=== PATIENT | female | born 1960 | race African-American/Black ===

== ENCOUNTER → 2017-01-19 | Outpatient (CLI) | payer MEDICAID ==
[2017-01-19 09:20] LABS: ABSOLUTE EOSINOPHILS # (AUTO) 0.4 10^3/uL (0.0-0.6); ABSOLUTE LYMPHOCYTES (AUTO) 2.5 10^3/uL (0.5-4.7); ABSOLUTE MONOCYTES (AUTO) 0.6 10^3/uL (0.1-1.4); ABSOLUTE NEUT (AUTO) 3.9 10^3/uL (1.7-8.2); BASOPHILS % (AUTO) 0.5 % (0-2); EOSINOPHILS % (AUTO) 5.2 % (0-6); HEMOGLOBIN 10.9 g/dL (12.0-15.5); HGB HCT DIFFERENCE -2.3; MEAN CORPUSCULAR HEMOGLOBIN 22.9 pg (27.0-33.4); MEAN CORPUSCULAR HGB CONC 31.1 g/dL (32.0-36.0); MEAN CORPUSCULAR VOLUME 74 fl (80-97); MONOCYTES % (AUTO) 7.7 % (3-13); RED BLOOD COUNT 4.76 10^6/uL (3.72-5.28); RED CELL DISTRIBUTION WIDTH 15.5 % (11.5-14.0); SEGMENTED NEUTROPHILS % (AUTO) 52.6 % (42-78); WHITE BLOOD COUNT 7.5 10^3/uL (4.0-10.5)
[2017-01-19 09:43] LABS: ALANINE AMINOTRANSFERASE 36 U/L (9-52); ALKALINE PHOSPHATASE 118 U/L (38-126); ANION GAP 10 (5-19); ASPARTATE AMINO TRANSFERASE 29 U/L (14-36); BILIRUBIN,DIRECT 0.3 mg/dL (0.0-0.4); BILIRUBIN,TOTAL 0.5 mg/dL (0.2-1.3); BLOOD UREA NITROGEN 11 mg/dL (7-20); CALCIUM 9.4 mg/dL (8.4-10.2); CARBON DIOXIDE 28 mmol/L (22-30); CHLORIDE 104 mmol/L (98-107); CHOLESTEROL 240.15 mg/dL (0-200); CREATININE RESULT 0.76 mg/dL (0.52-1.25); Direct HDL 68 mg/dL (>40); GLUCOSE 89 mg/dL (75-110); POTASSIUM 4.3 mmol/L (3.6-5.0); SODIUM 141.7 mmol/L (137-145); TOTAL PROTEIN 7.7 g/dL (6.3-8.2); TRIGLYCERIDES 60 mg/dL (<150)
[2017-01-19 09:54] LABS: DIRECT LDL 133 mg/dL (<100)
--- NOTE | 2017-01-19 09:54 | RADIOLOGY REPORT (SQ) ---
EXAM DESCRIPTION: FOOT BILATERAL 3 VIEWS COMPLETED DATE/TIME: 01/19/2017 9:43 am REASON FOR STUDY: PAIN IN RIGHT FOOT M54.5 LOW BACK PAIN M79.671 PAIN IN RIGHT FOOT COMPARISON: None. NUMBER OF VIEWS: Three views. TECHNIQUE: AP, lateral and oblique radiographic images acquired of the right and left foot. LIMITATIONS: None. FINDINGS: MINERALIZATION: Normal. BONES: No acute fracture or dislocation. No worrisome bone lesions. JOINTS: Hallux valgus is present bilaterally. SOFT TISSUES: No soft tissue swelling. No foreign body. OTHER: No other significant finding. IMPRESSION: Bilateral hallux valgus with no acute abnormality. TECHNICAL DOCUMENTATION: JOB ID: [id number] [employer]- All Rights Reserved
--- NOTE | 2017-01-19 09:55 | RADIOLOGY REPORT (SQ) ---
EXAM DESCRIPTION: ANKLE BILATERAL 3 VIEWS MIN COMPLETED DATE/TIME: 01/19/2017 9:43 am REASON FOR STUDY: PAIN IN RIGHT FOOT M54.5 LOW BACK PAIN M79.671 PAIN IN RIGHT FOOT COMPARISON: None. NUMBER OF VIEWS: Three views. TECHNIQUE: AP, lateral, and oblique radiographic images acquired of the right and left ankle. LIMITATIONS: None. FINDINGS: MINERALIZATION: Normal. BONES: No acute fracture or dislocation. No worrisome bone lesions. JOINTS: No effusions. SOFT TISSUES: No soft tissue swelling. No foreign body. OTHER: No other significant finding. IMPRESSION: NO RADIOGRAPHIC EVIDENCE OF ACUTE INJURY OF THE RIGHT AND LEFT ANKLES. TECHNICAL DOCUMENTATION: JOB ID: [id number] [employer]- All Rights Reserved
--- NOTE | 2017-01-19 10:00 | RADIOLOGY REPORT (SQ) ---
EXAM DESCRIPTION: LUMBAR SPINE COMPLETE COMPLETED DATE/TIME: 01/19/2017 9:43 am REASON FOR STUDY: LOW BACK PAIN M54.5 LOW BACK PAIN M79.671 PAIN IN RIGHT FOOT COMPARISON: None. NUMBER OF VIEWS: Five views including obliques. TECHNIQUE: AP, lateral, oblique, and sacral radiographic images acquired of the lumbar spine. LIMITATIONS: None. FINDINGS: MINERALIZATION: Normal. SEGMENTATION: There appear to be 6 lumbar type vertebral bodies. There is pseudoarthrosis with the s acrum at the L6 level. ALIGNMENT: Normal. VERTEBRAE: Maintained height. No fracture or worrisome bone lesion. DISCS: Preserved height. No significant osteophytes or end plate irregularity. POSTERIOR ELEMENTS: Pedicles and facets are intact. No pars defect or posterior arch defects. HARDWARE: None in the spine. PARASPINAL SOFT TISSUES: Normal. PELVIS: Intact as visualized. No fractures or worrisome bone lesions. SI joints intact. OTHER: No other significant finding. IMPRESSION: 6 lumbar vertebral bodies. There is pseudoarthrosis between the L6 vertebral body and s acrum. This is consistent with Bertolotti's syndrome. TECHNICAL DOCUMENTATION: JOB ID: [id number] [employer]- All Rights Reserved
--- NOTE | 2017-01-19 10:01 | RADIOLOGY REPORT (SQ) ---
EXAM DESCRIPTION: SACRUM AND COCCYX COMPLETED DATE/TIME: 01/19/2017 9:43 am REASON FOR STUDY: LOW BACK PAIN M54.5 LOW BACK PAIN M79.671 PAIN IN RIGHT FOOT COMPARISON: None. NUMBER OF VIEWS: Three views. TECHNIQUE: AP, lateral, and tilt views of the sacrum and coccyx. LIMITATIONS: None. FINDINGS: MINERALIZATION: Normal. BONES: No acute fracture or dislocation. No worrisome bone lesions. SOFT TISSUES: No soft tissue swelling. No foreign body. OTHER: Pseudoarthrosis is present the upper sacrum as described in the lumbar spine report. 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 TECHNICAL DOCUMENTATION: JOB ID: [id number] [email or web address]- All Rights Reserved
== END ==
LOC: OD 08:38
PROVIDERS: ATTEND Family Medicine Geriatric Medicine
DX: M54.5 Low back pain (principal); M79.671 Pain in right foot; E78.5 Hyperlipidemia, unspecified; D64.9 Anemia, unspecified; E55.9 Vitamin D deficiency, unspecified; G62.9 Polyneuropathy, unspecified; Z79.899 Other long term (current) drug therapy
CPT/HCPCS: 36415; 72110; 72220; 80053; 80061; 82306; 82607; 84443; 85025

== ENCOUNTER → 2017-01-21 | Outpatient (CLI) | payer MEDICAID | LOC: OD 08:45 | PROVIDERS: ATTEND Family Medicine Geriatric Medicine | DX: D64.9 Anemia, unspecified (principal) | CPT/HCPCS: 36415; 82728; 83540; 83550; 84466; 85045 ==

== ENCOUNTER → 2017-02-17 | Outpatient (CLI) | payer MEDICAID ==
--- NOTE | 2017-02-17 14:51 | RADIOLOGY REPORT (SQ) ---
EXAM DESCRIPTION: NM GASTRIC EMPTYING STUDY COMPLETED DATE/TIME: 02/17/2017 1:51 pm REASON FOR STUDY: BLOATING/GASTROPARESIS R14.0 ABDOMINAL DISTENSION (GASEOUS) K31.84 GASTROPARESIS COMPARISON: None. RADIONUCLIDE AND DOSE: 2 millicuries Tc-99m Sulfur Colloid. The route of agent administration: Oral. TECHNIQUE: Serial images acquired to 240 minutes with each image recorded over a 2-minute time frame . Image intensity values plotted with respect to time with linear regression algorithm. LIMITATIONS: None. FINDINGS: CALCULATED VALUE: 90.3 %. NORMAL VALUE: Greater than 90 % emptying at 240 minutes. OTHER: No other significant finding. IMPRESSION: NORMAL GASTRIC EMPTYING. TECHNICAL DOCUMENTATION: JOB ID: [id number] [employer]- All Rights Reserved
== END ==
LOC: RAD 07:57
PROVIDERS: ATTEND Internal Medicine Gastroenterology
DX: K31.84 Gastroparesis (principal); R14.0 Abdominal distension (gaseous)
CPT/HCPCS: 78264; A9541

== ENCOUNTER → 2017-03-04 | Outpatient (CLI) | payer MEDICAID ==
[2017-03-04 10:29] LABS: ALBUMIN 4.1 g/dL (3.5-5.0); ANION GAP 9 (5-19); BLOOD UREA NITROGEN 15 mg/dL (7-20); CALCIUM 9.9 mg/dL (8.4-10.2); CARBON DIOXIDE 28 mmol/L (22-30); CHLORIDE 105 mmol/L (98-107); CREATININE RESULT 0.83 mg/dL (0.52-1.25); GLUCOSE 80 mg/dL (75-110); POTASSIUM 4.2 mmol/L (3.6-5.0); SODIUM 142.4 mmol/L (137-145); TOTAL PROTEIN 7.5 g/dL (6.3-8.2)
[2017-03-04 10:33] LABS: ALANINE AMINOTRANSFERASE 30 U/L (9-52); ALKALINE PHOSPHATASE 105 U/L (38-126); ASPARTATE AMINO TRANSFERASE 26 U/L (14-36); BILIRUBIN,DIRECT 0.3 mg/dL (0.0-0.4); BILIRUBIN,TOTAL 0.4 mg/dL (0.2-1.3); C-REACTIVE PROTEIN 15.2 mg/L (<10.0)
[2017-03-05 08:50] LABS: THYROXINE (T4) 9.6 ug/dL (4.5-12.0)
== END ==
LOC: OD 08:51
PROVIDERS: ATTEND Family Medicine
DX: M06.4 Inflammatory polyarthropathy (principal)
CPT/HCPCS: 36415; 80053; 84436; 84443; 85652; 86038; 86140; 86430

== ENCOUNTER → 2017-06-17 | Outpatient (CLI) | payer MEDICAID ==
--- NOTE | 2017-06-17 14:27 | WOMENS IMAGING REPORT ---
EXAM DESCRIPTION: BILAT SCREENING MAMMO W/CAD COMPLETED DATE/TIME: 06/17/2017 10:04 am REASON FOR STUDY: ROUTINE SCREENING Z12.31 Z12.31 ENCNTR SCREEN MAMMOGRAM FOR MALIGNANT NEOPLASM OF [place] COMPARISON: December 2015 TECHNIQUE: Standard craniocaudal and mediolateral oblique views of each breast recorded using digita l acquisition. LIMITATIONS: None. FINDINGS: No masses, calcifications or architectural distortion. No areas of suspicion. Read with the assistance of CAD. .[facility] - R2 Cenova Version 1.3 .[facility] - R2 Cenova Version 1.3 .[facility] - R2 Cenova Version 2.4 .[facility] - R2 Cenova Version 2.4 .[facility] - R2 [employer] Version 9.2 IMPRESSION: NORMAL MAMMOGRAM. BIRADS 1. BREAST DENSITY: b. There are scattered areas of fibroglandular density. BIRAD: 1 NEGATIVE RECOMMENDATION: ROUTINE SCREENING COMMENT: The patient has been notified of the results by letter per SA requirements. Additional no tification policies are in place for contacting patient with suspicious or incomplete findings. Quality ID #225: The [employer] recommends an annual screening mammogram for women aged 40 years or over. This facility utilizes a reminder system to ensure that all patients receive reminder letters, and/or direct phone calls for appointments. This includes reminders for routine scr eening mammograms, diagnostic mammograms, or other Breast Imaging Interventions when appropriate. Th is patient will be placed in the appropriate reminder system. The [employer] (ACR) has developed recommendations for screening MRI of the breast s in certain patient populations, to be used in conjunction with mammography. Breast MRI surveillanc e may be appropriate for women with more than 20% lifetime risk of developing breast cancer as deter mined by genetic testing, significant family history of the disease, or history of mantle radiation f or Hodgkins Disease. ACR Practice Guidelines 2008. TECHNICAL DOCUMENTATION: FINDING NUMBER: (1) ASSESSMENT: (1) JOB ID: [id number] [employer]- All Rights Reserved
== END ==
LOC: WI 10:24
PROVIDERS: ATTEND Family Medicine Geriatric Medicine
DX: Z12.31 Encounter for screening mammogram for malignant neoplasm of breast (principal)
CPT/HCPCS: 77067; G0202

== ENCOUNTER → 2017-09-15 | Outpatient (CLI) | payer MEDICAID ==
--- NOTE | 2017-09-15 09:31 | RADIOLOGY REPORT (SQ) ---
EXAM DESCRIPTION: FOOT RIGHT COMPLETE COMPLETED DATE/TIME: 09/15/2017 9:16 am REASON FOR STUDY: PAIN IN R FOOT/ANKLE M25.571 PAIN IN RIGHT ANKLE AND JOINTS OF RIGHT FOOT M79.671 PAIN IN RIGHT FOOT COMPARISON: None. NUMBER OF VIEWS: Three views. TECHNIQUE: AP, lateral and oblique without weight bearing radiographic images acquired of the right foot. LIMITATIONS: None. FINDINGS: MINERALIZATION: Normal. BONES: No acute fracture or dislocation. Hallux valgus and bunion deformity of the great toe. No wo rrisome bone lesions. No significant osteophytes. JOINTS: No erosions. No clarita-articular osteopenia. No chondrocalcinosis. SOFT TISSUES: No swelling. No calcifications. OTHER: No other significant finding. IMPRESSION: CHRONIC CHANGES. HALLUX VALGUS AND BUNION DEFORMITY OF THE GREAT TOE. NO ACUTE FINDING S. TECHNICAL DOCUMENTATION: JOB ID: [id number] [employer]- All Rights Reserved Reading location - IP/workstation name: [email or web address]
--- NOTE | 2017-09-15 09:32 | RADIOLOGY REPORT (SQ) ---
EXAM DESCRIPTION: ANKLE RIGHT COMPLETE COMPLETED DATE/TIME: 09/15/2017 9:16 am REASON FOR STUDY: PAIN IN R FOOT/ANKLE M25.571 PAIN IN RIGHT ANKLE AND JOINTS OF RIGHT FOOT M79.671 PAIN IN RIGHT FOOT COMPARISON: None. NUMBER OF VIEWS: Three views. TECHNIQUE: AP, lateral, and oblique without weight bearing radiographic images acquired of the right ankle. LIMITATIONS: None. FINDINGS: MINERALIZATION: Normal. BONES: No acute fracture or dislocation. No worrisome bone lesions. Normal alignment. No significant arthritic changes. JOINTS AND SOFT TISSUES: No swelling. No calcifications. No foreign bodies. OTHER: No other significant finding. IMPRESSION: NEGATIVE STUDY OF THE RIGHT ANKLE. NO ACUTE POST-TRAUMATIC CHANGES. NO EXPLANATION FOR P AIN. TECHNICAL DOCUMENTATION: JOB ID: [id number] [employer]- All Rights Reserved Reading location - IP/workstation name: [email or web address]
== END ==
LOC: RAD 08:52
PROVIDERS: ATTEND Family Medicine Geriatric Medicine
DX: M25.571 Pain in right ankle and joints of right foot (principal); M79.671 Pain in right foot; M20.11 Hallux valgus (acquired), right foot; M21.611 Bunion of right foot

== ENCOUNTER → 2017-10-24 | Outpatient (CLI) | payer MEDICAID ==
[2017-10-24 11:03] LABS: ABSOLUTE BASOPHILS # (AUTO) 0.1 10^3/uL (0.0-0.2); ABSOLUTE EOSINOPHILS # (AUTO) 0.3 10^3/uL (0.0-0.6); ABSOLUTE MONOCYTES (AUTO) 0.4 10^3/uL (0.1-1.4); ABSOLUTE NEUT (AUTO) 3.7 10^3/uL (1.7-8.2); BASOPHILS % (AUTO) 0.8 % (0-2); EOSINOPHILS % (AUTO) 4.8 % (0-6); HEMATOCRIT 34.9 % (36.0-47.0); LYMPHOCYTES % (AUTO) 31.2 % (13-45); MEAN CORPUSCULAR HEMOGLOBIN 23.3 pg (27.0-33.4); MEAN CORPUSCULAR HGB CONC 31.7 g/dL (32.0-36.0); MEAN CORPUSCULAR VOLUME 74 fl (80-97); MONOCYTES % (AUTO) 6.7 % (3-13); PLATELET COUNT 339 10^3/uL (150-450); RED BLOOD COUNT 4.74 10^6/uL (3.72-5.28); RED CELL DISTRIBUTION WIDTH 16.1 % (11.5-14.0); SEGMENTED NEUTROPHILS % (AUTO) 56.5 % (42-78); TOTAL CELLS COUNTED % (AUTO) 100 %; WHITE BLOOD COUNT 6.5 10^3/uL (4.0-10.5)
[2017-10-24 11:34] LABS: ALANINE AMINOTRANSFERASE 40 U/L (9-52); ANION GAP 7 (5-19); ASPARTATE AMINO TRANSFERASE 28 U/L (14-36); BLOOD UREA NITROGEN 12 mg/dL (7-20); CALCIUM 9.7 mg/dL (8.4-10.2); CARBON DIOXIDE 31 mmol/L (22-30); CHLORIDE 103 mmol/L (98-107); CHOLESTEROL 260.52 mg/dL (0-200); GLUCOSE 90 mg/dL (75-110); POTASSIUM 4.2 mmol/L (3.6-5.0); SODIUM 140.9 mmol/L (137-145); TRIGLYCERIDES 67 mg/dL (<150); URIC ACID 4.3 mg/dL (2.5-7.5)
[2017-10-24 11:45] LABS: DIRECT LDL 132 mg/dL (<100)
== END ==
LOC: LAB 09:48
PROVIDERS: ATTEND Family Medicine Geriatric Medicine
DX: M25.571 Pain in right ankle and joints of right foot (principal); D50.9 Iron deficiency anemia, unspecified; K21.9 Gastro-esophageal reflux disease without esophagitis; Z79.899 Other long term (current) drug therapy
CPT/HCPCS: 36415; 80048; 80061; 82272; 84450; 84460; 84550; 85025

== ENCOUNTER → 2017-10-27 | Outpatient (CLI) | payer MEDICAID ==
[2017-10-27 11:32] LABS: ABSOLUTE BASOPHILS # (AUTO) 0.1 10^3/uL (0.0-0.2); ABSOLUTE EOSINOPHILS # (AUTO) 0.3 10^3/uL (0.0-0.6); ABSOLUTE LYMPHOCYTES (AUTO) 2.5 10^3/uL (0.5-4.7); ABSOLUTE MONOCYTES (AUTO) 0.7 10^3/uL (0.1-1.4); BASOPHILS % (AUTO) 0.7 % (0-2); EOSINOPHILS % (AUTO) 4.5 % (0-6); HEMATOCRIT 33.6 % (36.0-47.0); HEMOGLOBIN 10.7 g/dL (12.0-15.5); LYMPHOCYTES % (AUTO) 33.4 % (13-45); MEAN CORPUSCULAR HEMOGLOBIN 23.1 pg (27.0-33.4); MEAN CORPUSCULAR HGB CONC 31.7 g/dL (32.0-36.0); MEAN CORPUSCULAR VOLUME 73 fl (80-97); MONOCYTES % (AUTO) 8.6 % (3-13); PLATELET COUNT 335 10^3/uL (150-450); RED BLOOD COUNT 4.61 10^6/uL (3.72-5.28); SEGMENTED NEUTROPHILS % (AUTO) 52.8 % (42-78); TOTAL CELLS COUNTED % (AUTO) 100 %; WHITE BLOOD COUNT 7.6 10^3/uL (4.0-10.5)
== END ==
LOC: OD 10:55
PROVIDERS: ATTEND Family Medicine Geriatric Medicine
DX: D50.9 Iron deficiency anemia, unspecified (principal)
CPT/HCPCS: 36415; 85025

== ENCOUNTER 2018-04-05 07:56 | Day surgery (SDC) | payer MEDICAID ==
[~2018-04-05 07:56] MED LIST: BUPIVACAINE HCL 0.5 % INJ/PF 30 ML SDV ONE; CEFAZOLIN 1 GM/D5W RTU 1 GM/50 ML RTUPB IV PRN; HYDROMORPHONE HCL INJ/PF 2 MG/ML AMPULE ONE; LIDOCAINE 2% INJ (20 MG/ML) 20 ML MDV ONE; MIDAZOLAM 2 MG/2 ML INJ ONE; PROPOFOL INJ 200 MG/20 ML VIAL IV ONE
== END 2018-04-05 08:14 | disposition home or self-care (01) ==
LOC: SC 07:56
PROVIDERS: ATTEND Podiatrist Foot Surgery
DX: R69 Illness, unspecified (principal)
CPT/HCPCS: J1170; J2250; J2704; J3490

== ENCOUNTER 2018-04-26 08:12 | Day surgery (SDC) | payer MEDICAID ==
[~2018-04-26 08:12] MED LIST changes: +BACITRACIN INJ 50,000 UNIT VIAL ONE; -HYDROMORPHONE HCL INJ/PF 2 MG/ML AMPULE ONE; -MIDAZOLAM 2 MG/2 ML INJ ONE; +NORMAL SALINE INJ/PF 0.9% 10 ML SDV ONE; +POLYMYXIN B SULFATE INJ 500000 UNIT VIAL ONE; -PROPOFOL INJ 200 MG/20 ML VIAL IV ONE
[2018-04-26] MEDS ORDERED: MIDAZOLAM 2 MG/2 ML INJ ONE (09:30)
[2018-04-26] MEDS ORDERED: FENTANYL CITRATE INJ/PF 100 MCG/2 ML AMPUL ONE (09:30)
[2018-04-26] MEDS ORDERED: PROPOFOL INJ 200 MG/20 ML VIAL IV ONE (09:31)
[2018-04-26] MEDS ORDERED: KETAMINE HCL INJ 500 MG/10 ML VIAL ONE (10:36)
[2018-04-26] MEDS: BUPIVACAINE INJ/PF LIPOSOME/PF 266 MG/20 ML SDV ONE ×2 (11:12→11:22)
--- NOTE | 2018-04-26 12:41 | RADIOLOGY REPORT (SQ) ---
EXAM DESCRIPTION: FOOT RIGHT 2 VIEWS COMPLETED DATE/TIME: 04/26/2018 12:13 pm REASON FOR STUDY: RT FOOT BUNIONECTOMY M20.21 HALLUX RIGIDUS, RIGHT FOOT M20.11 HALLUX VALGUS (ACQ UIRED), RIGHT FOOT COMPARISON: None. FLUOROSCOPY TIME: 11 seconds 2 images saved to PACS. TECHNIQUE: Intra-operative images acquired during surgical procedure to evaluate progress. NUMBER OF IMAGES: 2 LIMITATIONS: None. FINDINGS: Two views of the 1st metatarsophalangeal joint. Joint prosthesis status post osteotomy. IMPRESSION: IMAGE(S) OBTAINED DURING PROCEDURE. COMMENT: Quality ID 145: Final reports for procedures using fluoroscopy that document radiation exp osure indices, or exposure time and number of fluorographic images (if radiation exposure indices are not available) Please consult full operative report of the attending physician for description of the procedure. TECHNICAL DOCUMENTATION: JOB ID: [id number] [employer]- All Rights Reserved Reading location - IP/workstation name: [email or web address]
--- NOTE | 2018-04-26 12:46 | RADIOLOGY REPORT (SQ) ---
EXAM DESCRIPTION: NO CHG FLUORO COMPLETE DATE/TIME: 04/26/2018 12:13 pm REASON FOR STUDY: RT FOOT BUNIONECTOMY M20.21 HALLUX RIGIDUS, RIGHT FOOT M20.11 HALLUX VALGUS (ACQ UIRED), RIGHT FOOT FINDINGS: Please see combined report for performance of procedure and radiologic supervision and int erpretation. IMPRESSION: Please see combined report for performance of procedure and radiologic supervision and i nterpretation. Reading location - IP/workstation name: [email or web address]
--- NOTE | 2018-04-26 13:01 | SURGICARE OPERATIVE REPORT E ---
[facility] Operative Report NAME: MOHSEN SANDOVAL AGE: 57Y DATE OF SURGERY: 04/26/2018 ROOM: PREOPERATIVE DIAGNOSIS: Hallux abductovalgus, right foot. POSTOPERATIVE DIAGNOSIS: Hallux abductovalgus with degenerative joint disease, right foot. SURGICAL PROCEDURE: Briceno bunionectomy with insertion of total Silastic implant, right foot. SURGEON: SUNNY MACHUCA DPM CALENDER MACHINE OPERATOR: LIANE JACKSON DPM DESCRIPTION OF PROCEDURE: Following induction of IV regional local anesthesia, the right foot and leg were prepped and draped in the usual sterile manner. Pneumatic tourniquet was placed around the right ankle and inflated to 150 mmHg after exsanguination of the limb via Esmarch bandage. The following surgical procedure was then performed: Briceno bunionectomy with insertion of total Silastic implant right foot. Attention was directed to the dorsal aspect of the first metatarsophalangeal joint of the right foot where an approximately 5 cm dorsal linear incision was made. The incision was deep and via sharp dissection. All bleeders were clamped and bovied as necessary for the purposes of hemostasis. A capsular incision was made in the same manner as the original skin incision and this was made medial to the extensor hallucis longus tendon. The capsule was then reflected medial and laterally from the first metatarsophalangeal joint. The first metatarsophalangeal joint was inspected and it was noted that half of the cartilage on the first metatarsal head was eroded and that there were also small erosions on the lateral aspect of the cartilage. It was determined therefore there was degenerative joint disease and a Briceno bunionectomy with implant would be performed. The base of the proximal phalanx was osteotomized approximately 1 cm distal to the joint and removed en toto from the wound utilizing a [employer] sagittal saw. The hypertrophied medial eminence on the first metatarsal head was osteotomized parallel to the long axis of the bone via a [employer] sagittal saw. Utilizing McGlamry elevators, the fibular and tibial sesamoids were freed from their attachments to the plantar aspect of the first metatarsal. It was noted that the sesamoids then could retract proximally. Utilizing a drill bit, a drill hole was made in the had of the first metatarsal. The hole was then reamed utilizing a Janice tree rasp and then it was hand reamed utilizing a #3 proximal handheld reamer. Attention was then directed to the base of the proximal phalanx, which was first reamed without using any power utilizing just the handheld #3 as distal reamer. A 3S sizer was then placed into the head of the first metatarsal and into the base of the proximal phalanx and x-ray was taken. It was noted that this was the correct size for the patient's bone and that the first metatarsophalangeal joint now took on a more anatomically correct position. The area was then flushed with copious amounts of an antibacterial saline solution. Bone wax was then applied to the medial aspect of the first metatarsal head. A #3S total Silastic implant with grommet was then inserted across the joint. The capsule was then coapted and maintained utilizing simple interrupted sutures of 3-0 Vicryl. Another x-ray was taken and it was noted that the implant was seated correctly and the first metatarsophalangeal joint was in a more anatomically correct position and that the implant was the correct size. The longer extensor hallucis longus tendon was then lengthened utilizing medial and lateral cuts made into the tendon at approximately 1 cm intervals. The subcutaneous tissue was then coapted and maintained utilizing simple interrupted sutures of 4-0 Vicryl. Total of 20 mL of Exparel was then injected along the length of the incision and the surgical site. The skin was then coapted and maintained utilizing simple interrupted sutures of 5-0 nylon. A dry sterile dressing was then applied consisting of Elliot silk, 4 x 4s, Conform, Kerlix, and Coban. The pneumatic tourniquet was released. It was noted that all digits were warm and viable and patient was transferred to the recovery room. DICTATING PHYSICIAN: SUNNY MACHUCA D.P.M. [id number] PHY#: [id number] ID: [id number] JOB#: [id number] ACCT: [id number] cc:SUNNY MACHUCA DPM > YAKOV
--- NOTE | 2018-04-26 13:41 | SURGICARE DISCHARGE SUMMARY E ---
[facility] Discharge Summary NAME: MOHSEN SANDOVAL AGE: 57Y ADMITTED: 04/26/2018 DISCHARGED: 04/26/2018 SURGICAL PROCEDURE: Briceno bunionectomy with insertion of total Silastic implant, right foot. POSTOPERATIVE DIAGNOSIS: Hallux abductovalgus with degenerative joint disease, right foot. SURGEON: SNUNY MACHUCA DPM BLACK ASH BURNER OPERATOR: LIANE JACKSON DPM DISCHARGE SUMMARY: The patient was admitted to [facility] with a chief complaint of a painful bunion on her right foot. She stated she has had this bunion for a number of years that is progressively getting worse and it is painful for her to walk in shoes. The patient desired to have this problem surgically corrected. She underwent the above surgical procedure without any complications and was transferred to the recovery room. Patient was discharged with a surgical shoe and ice pack, postoperative instructions, and postoperative prescriptions for Percocet 5/325 mg #50, Phenergan 25 mg #25, and cephalexin 500 mg #4. She was given a follow-up appointment at doctor's office in 1 week. The patient was discharged from [facility]. DICTATING PHYSICIAN: SUNNY MACHUCA D.P.M. [id number] PHY#: [id number] ID: [id number] JOB#: [id number] ACCT: [id number] cc:SUNNY MACHUCA DPM >
== END 2018-04-26 13:25 | disposition home or self-care (01) ==
LOC: SC 08:12
PROVIDERS: ATTEND Podiatrist Foot Surgery
DX: M20.11 Hallux valgus (acquired), right foot (principal); M19.071 Primary osteoarthritis, right ankle and foot; M94.8X7 Other specified disorders of cartilage, ankle and foot; K21.9 Gastro-esophageal reflux disease without esophagitis; M47.9 Spondylosis, unspecified; Z79.899 Other long term (current) drug therapy
CPT/HCPCS: 28292; 73620; C1776; J2250; J3490 ×6; J0690; J3010; J2704; C9290; 01480